=== PATIENT | male | born 1965 ===

== ENCOUNTER 2022-07-22 09:25 | Day surgery (SDC) | payer OTHER ==
[~2022-07-22 09:25] MED LIST: LIPITOR20 MG PO
[2022-07-22] MEDS ORDERED: TRAMADOL HCL50 MG PO (14:12)
[2022-07-22] MEDS ORDERED: TYLENOL ARTHRI650 MG PO (14:12)
[2022-07-22] MEDS ORDERED: KETO10TA2 PO (14:12)
[2022-07-22] MEDS ORDERED: MIRALAX17 GM PO (14:12)
== END 2022-07-22 18:20 | disposition home or self-care (01) ==
LOC: CIR.AMB 09:25
PROVIDERS: ATTEND Surgery
DX: K40.90 Unilateral inguinal hernia, without obstruction or gangrene, not specified as recurrent (principal); I10 Essential (primary) hypertension; Z20.822 Contact with and (suspected) exposure to COVID-19
CPT/HCPCS: 49650; C1781